=== PATIENT | female | born 1985 | race Hispanic/Latino ===

== ENCOUNTER 2017-12-15 21:05 | Emergency (ER) | payer BC ==
[2017-12-15 21:43] VITALS: BP 117/83; PULSE 98; RESP 16; TEMP 98.6; O2SAT 99
--- NOTE | 2017-12-15 22:01 | ED PDOC ---
HPI: CCC, URI, Sore Throat Time Seen by Provider: 12/15/17 22:00 Chief Complaint (Nursing): ENT Problem Chief Complaint (Provider): ear pain History Per: Patient (32 y/o female 39 week gestation here with left ear pain today noted after dinner. Patient has had nasal congestion x 3 days. No fevers/ chills/no vomiting. ) Past Medical History Reviewed: Historical Data, Nursing Documentation, Vital Signs Vital Signs: Last Vital Signs Temp 98.6 F 12/15/17 21:39 Pulse 98 H 12/15/17 21:39 Resp 16 12/15/17 21:39 BP 117/83 12/15/17 21:39 Pulse Ox 99 12/15/17 22:01 - Family History Family History: States: No Known Family Hx - Home Medications Home Medications: Ambulatory Orders Medication Instructions Recorded Acetaminophen [Acetaminophen Extra 2 tab PO Q6 PRN #24 tablet 12/15/17 Strength] Amoxicillin 500 mg PO TID #21 tab 12/15/17 - Allergies Allergies/Adverse Reactions: Allergies Allergy/AdvReac Type Severity Reaction Status Date / Time gluten Allergy PAIN Verified 12/15/17 21:42 methyl salicylate Allergy RASH Verified 12/15/17 21:42 flouride Allergy RASH Uncoded 06/28/15 13:20 Review of Systems ROS Statement: Except As Marked, All Systems Reviewed And Found Negative ENT: Positive for: Ear Pain Physical Exam - Reviewed Nursing Documentation Reviewed: Yes Vital Signs Reviewed: Yes - Physical Exam Appears: Positive for: Well, Non-toxic, No Acute Distress Head Exam: Positive for: ATRAUMATIC, NORMAL INSPECTION, NORMOCEPHALIC Skin: Positive for: Normal Color, Warm, DRY Eye Exam: Positive for: EOMI, Normal appearance, PERRL ENT: Negative for: Normal ENT Inspection (left TM with decreased cone of light and erythema) Neck: Positive for: Normal, Painless ROM Cardiovascular/Chest: Positive for: Regular Rate, Rhythm Respiratory: Positive for: CNT, Normal Breath Sounds Gastrointestinal/Abdominal: Positive for: Normal Exam, Bowel Sounds, Soft Back: Positive for: Normal Inspection Extremity: Positive for: Normal ROM Neurologic/Psych: Positive for: Alert, Oriented - ECG O2 Sat by Pulse Oximetry: 99 - Progress ED Course And Treament: amoxicillin 500mg x 1 dose tylenol 975mg x 1 dose Disposition - Clinical Impression Clinical Impression: Otitis media - Patient ED Disposition Is Patient to be Admitted: No - Disposition Disposition: Routine/Home Disposition Time: 22:03 Condition: FAIR Prescriptions: Acetaminophen [Acetaminophen Extra Strength] 2 tab PO Q6 PRN #24 tablet PRN Reason: Pain, Moderate (4-7) Amoxicillin 500 mg PO TID #21 tab Instructions: Otitis Media (ED) Forms: [employer] ([place])
== END 2017-12-15 22:30 | disposition home or self-care (01) ==
LOC: H.ER 21:05
DX: H66.92 Otitis media, unspecified, left ear (principal); Z3A.39 39 weeks gestation of pregnancy